=== PATIENT | male | born 1970 | race Caucasian/White ===

== ENCOUNTER → 2018-07-28 | Outpatient (CLI) | payer BC ==
[2016-10-07 12:21] VITALS: BP 158/83
[~2018-07-28] MED LIST: ASPI325T8 PO; CIPR500T PO; HYDR-971 PO; METR500T8 PO
--- NOTE | 2018-07-28 15:39 | KCIC ---
MRI Lumbar Spine without contrast History: Low back pain, right radiculopathy, right leg weakness Technique: Multiplanar, multi sequential noncontrast MR imaging was performed of the lumbar spine. Contrast: None Comparison: None Findings: There is mild motion. Lumbar vertebral body stature is mostly preserved, inferior endplate concavity and Schmorl's node of L1 not associated with significant marrow edema. There is negligible posterior subluxation L1 relative L2 and L5 relative to S1. There is moderate degenerative disc disease L5-S1, minimally L4-5 and L1-2, and mild disc desiccation L3-4. Conus terminates at L1-L2. 1.5 cm T2 hyperintense lesion of the visualized left kidney is most likely a cyst. L1-L2: There is minimal disc osteophyte complex and bulge. Neural foramina and spinal canal are adequate. L2-L3: Spinal canal and neural foramina are adequate. There is minimal buckling of the ligamentum flavum. L3-L4: Spinal canal and neural foramina are adequate. L4-L5: There is posterior broad protrusion somewhat more eccentric to left lateral recess with mild left lateral recess stenosis, contact of the descending left L5 nerve root. Neural foramina are overall adequate. L5-S1: There is a broad posterior bulge as well as shallow superimposed extrusion extending slightly below the intervertebral disc space greatest centrally. While the descending S1 nerve roots greater on the right, there is no significant displacement. There is mild neural foramina compromise bilaterally. There is mild facet degenerative change greater on the right. Impression: 1. There is moderate degenerative disc disease L5-S1, to lesser degree L4-5 and L1-2. There is mild left lateral recess stenosis by protrusion L4-5. Bulge/extrusion at L5-S1 is near the descending S1 nerve roots greater on the right without significant impingement or spinal stenosis. Electronically signed by: Fito English MD (07/28/2018 3:35 PM) [facility]
== END | disposition home or self-care (01) ==
LOC: KCIC MRI 14:32
PROVIDERS: ATTEND Family Medicine
DX: M51.37 Other intervertebral disc degeneration, lumbosacral region (principal); M48.061 Spinal stenosis, lumbar region without neurogenic claudication
CPT/HCPCS: 72148